=== PATIENT | male | born 1965 | race Caucasian/White ===

== ENCOUNTER 2018-09-13 13:02 | Emergency (ER) | payer MEDICAID, OTHER ==
[~2018-09-13] VITALS: Ht 170.2 cm; Wt 87.0 kg
[2018-09-13] MEDS ORDERED: LIDOCAINE 1%/EPI 1:100,000 10 ML VIAL IJ ONE (13:45)
[2018-09-13] MEDS ORDERED: KETOROLAC 60MG/2ML VIAL IM ONE (13:45)
[2018-09-13] MEDS ORDERED: BACITRACIN ZINC OINT UDPKT TOP ONE (13:45)
[2018-09-13] MEDS ORDERED: TETANUS, DIPHTHERIA, PERTUSSIS VAC/PF 0.5ML (>7YR OLD) IM ONE (13:45)
[2018-09-13 16:54] VITALS: BP 133/88
== END 2018-09-13 16:57 | disposition home or self-care (01) ==
LOC: ER 13:23
DX: S01.112A Laceration without foreign body of left eyelid and periocular area, initial encounter (principal); W18.39XA Other fall on same level, initial encounter; Y93.89 Activity, other specified; Y92.89 Other specified places as the place of occurrence of the external cause; Y99.8 Other external cause status
CPT/HCPCS: 12013; 70450; 70486; 90471; 90715; 96372; 99284; J1885; J3490